=== PATIENT | male | born 1985 | race Caucasian/White ===

== ENCOUNTER 2024-05-10 07:43 | Emergency (ER) | payer BC ==
[2024-05-10] MEDS ORDERED: Sodium Chloride 0.9% 2.5 ML Syringe FLUSH PRN (08:06)
[2024-05-10 08:09] LABS: BASOPHILS ABSOLUTE AUTO 0.09 K/uL (0.00-0.20); BASOPHILS PERCENT AUTO 1.1 % (0.0-1.0); EOSINOPHILS ABSOLUTE AUTO 0.05 K/uL (0.00-0.45); EOSINOPHILS PERCENT AUTO 0.6 % (0.0-6.0); HEMATOCRIT 49.6 % (42.0-52.0); HEMOGLOBIN 17.3 g/dL (14.0-18.0); IMMATURE GRAN ABSOLUTE AUTO 0.04 K/uL (0.00-0.05); IMMATURE GRAN PERCENT AUTO 0.5 % (0.0-0.4); LYMPHOCYTES ABSOLUTE AUTO 1.58 K/uL (1.00-4.80); LYMPHOCYTES PERCENT AUTO 19.2 % (24.0-44.0); MEAN CORPUSCULAR HEMOGLOBIN 29.8 pg (28.0-32.0); MEAN CORPUSCULAR HGB CONC 34.9 g/dL (32.0-36.0); MEAN CORPUSCULAR VOLUME 85.4 fL (83.0-99.0); MEAN PLATELET VOLUME 9.2 fL (9.4-12.4); MONOCYTES ABSOLUTE AUTO 0.68 K/uL (0.00-0.80); MONOCYTES PERCENT AUTO 8.3 % (0.0-8.0); NEUTROPHILS ABSOLUTE AUTO 5.78 K/uL (1.80-7.70); NEUTROPHILS PERCENT AUTO 70.3 % (41.0-71.0); PLATELET COUNT,PLT 231 K/uL (150-400); RED BLOOD CELL COUNT 5.81 M/uL (4.52-5.90); WHITE BLOOD CELL COUNT,WBC 8.22 K/uL (3.9-11.3)
[2024-05-10] MEDS: Sodium Chloride 0.9% 10 ML Syringe FLUSH PRN (08:22)
[2024-05-10] MEDS: Ketorolac 30 MG/ML SDV IVPUSH ONE (08:22)
[2024-05-10 08:24] LABS: A/G RATIO 1.1 (0.9-1.6); ALBUMIN 3.7 g/dL (3.4-5.0); BILIRUBIN TOTAL 0.4 mg/dL (0.2-1.0); CALCIUM 8.4 mg/dL (8.5-10.1); CARBON DIOXIDE,CO2 28.4 mmol/L (21.0-32.0); CREATININE 1.1 mg/dL (0.8-1.3); EST CRCL DRUG DOSING (CG) 86.36 mL/min; POTASSIUM,K 4.2 mmol/L (3.5-5.1); PROTEIN TOTAL,TP 7.2 g/dL (6.4-8.2)
[2024-05-10] MEDS: Iopamidol 755 MG/ML 500 ML Multipack Bottle IVPUSH STA (09:18)
== END 2024-05-10 11:24 | disposition home or self-care (01) ==
LOC: MW.ED 07:43
DX: R07.2 Precordial pain (principal); I25.10 Atherosclerotic heart disease of native coronary artery without angina pectoris; I10 Essential (primary) hypertension; Z75.8 Other problems related to medical facilities and other health care; Z88.8 Allergy status to other drugs, medicaments and biological substances; Z79.899 Other long term (current) drug therapy
CPT/HCPCS: 36415; 71275; 80053; 84484; 85025; 85379; 93005; 96374; 99285; J1885; Q9967